=== PATIENT | male | born 1965 | race American Indian/Alaskan Native ===

== ENCOUNTER 2016-10-01 16:30 | Emergency (ER) | payer SELFPAY ==
[2016-10-01] MEDS ORDERED: DUONEB 0.5 MG-3 MG/3 ML SOLN IH ONE (18:59)
--- NOTE | 2016-10-01 19:08 | Emergency Department Report ---
Chief Complaint: Upper Respiratory Infection Stated Complaint: CHEST CONGESTION,MAK Time Seen by Provider: 10/01/16 18:51 - HPI History of Present Illness: 50-year-old male past medical history HIV, states his CD4 count is 1500 undetectable viral load, history of tuberculosis in 2011 and history of PCP pneumonia 2 in 2011 in 2012 presents with complaint of fevers chills cough productive approximately 5-6 days, also states that he has been having severe night sweats. Denies any hemoptysis no significant weight loss no significant arthralgias. Patient states he is traveling from [place] sitting family members. - ROS Review of Systems: history of HIV,TB and PCP pneumonia - Exam Vital Signs: Vital Signs 10/01/16 16:39 Temperature 98.2 F Pulse Rate 89 Respiratory 18 Rate Blood Pressure 158/94 O2 Sat by Pulse 95 Oximetry Physical Exam: Patient has bilateral rhonchi on auscultation of lung [place] MSE screening note: Focused history and physical exam performed. Due to findings the following was ordered: Screening Assessment/Plan/Differential Dx: Possible pneumonia versus influenza versus bronchitis versus viral syndrome, low risk for possibility of tuberculosis 1- This initial assessment/diagnostic orders/clinical plan/ treatment(s) is/are subject to change based on pt's health status, clinical progression and re- assessment by fellow clinical providers in the ED. Further treatment and workup at subsequent clinical provers discretion. Patient/guardians urged not to elope from ED as their condition may be serious if not clinically assessed and managed. 2-chest x-ray, BMP, LDH, lactic acid, CBC, influenza swab 3-I immediately informed charge nurse of scenario, respiratory/droplet isolation room opened in main ED patient transferred to isolation room for further assessment and management 4-given patient's clinical symptoms and history of tuberculosis and recurrent PCP pneumonia these should be considered in his differential diagnoses ED Disposition for MSE Condition: Stable
--- NOTE | 2016-10-01 19:09 | Emergency Department Report ---
- General Chief Complaint: Upper Respiratory Infection Stated Complaint: CHEST CONGESTION,MAK Time Seen by Provider: 10/01/16 18:51 Source: patient Mode of arrival: Ambulatory Limitations: No Limitations - History of Present Illness Initial Comments: 50-year-old male past medical history HIV, states his CD4 count is 1500 undetectable viral load, history of tuberculosis in 2011 and history of PCP pneumonia 2 in 2011 in 2013 presents with complaint of fevers, chills, cough productive approximately 6 days, also states that he has been having severe night sweats. Denies any hemoptysis no significant weight loss no significant arthralgias. Patient is immunocompetent and he is visiting from [place]. He is on antiviral therapy and infectious disease doctors in [place]. Patient said that he will be returning to [place] on Monday. He did not take any fever flake miller wheat and oats today but he did due to Mucinex and NyQuil yesterday. Denies any nausea vomiting. She reports having chest congestion. Pain scale is 0 out of 10. Patient denies any shortness of breath. MD Complaint: fever, cough, nasal congestion Onset/Timin -: days(s) Severity scale (0 -10): 0 Improves With: OTC cold medicine Worsens With: nothing Context: other (unknown) Associated Symptoms: fever, chills, diaphoresis, rhinorrhea, nasal congestion, cough. denies: myalgias, headache, sore throat, stiff neck, chest pain, shortness of breath, abdominal pain, nausea, vomiting, diarrhea, dysuria, rash, confusion, right sweats, weight loss, epistaxis, hoarseness, ear pain Treatments Prior to Arrival: "cold medicine" - Related Data Previous Rx's Medication Instructions Recorded Last Taken Type ALBUTEROL Inhaler [ProAir HFA 2 puff IH QID PRN #1 inhalation 10/01/16 Unknown Rx Inhaler] Fluticasone [Flonase] 1 spray NS QDAY #1 bottle 10/01/16 Unknown Rx Sulfamethoxazole/Trimethoprim 1 each PO BID #20 tablet 10/01/16 Unknown Rx [Bactrim DS TAB] guaiFENesin/CODEINE [Robitussin AC] 10 ml PO TID PRN #210 ml NS 10/01/16 Unknown Rx Allergies Allergy/AdvReac Type Severity Reaction Status Date / Time No Known Allergies Allergy Verified 10/01/16 16:43 ED Review of Systems ROS: Stated complaint: CHEST CONGESTION,MAK Other details as noted in HPI Comment: All other systems reviewed and negative Constitutional: chills, diaphoresis, fever Eyes: denies: eye pain, eye discharge ENT: congestion. denies: ear pain, throat pain Respiratory: cough, other (no hemoptysis). denies: orthopnea, shortness of breath, SOB with exertion, SOB at rest, stridor, wheezing Cardiovascular: denies: chest pain, palpitations, edema, syncope Gastrointestinal: denies: abdominal pain, nausea, vomiting, diarrhea Musculoskeletal: denies: back pain, arthralgia Skin: denies: rash Neurological: denies: headache ED Past Medical Hx - Past Medical History Previous Medical History?: Yes Additional medical history: HIV - Surgical History Past Surgical History?: No - Family History Family history: no significant - Social History Smoking Status: Never Smoker Substance Use Type: Alcohol - Medications Home Medications: Home Medications Medication Instructions Recorded Confirmed Last Taken Type ALBUTEROL Inhaler [ProAir HFA 2 puff IH QID PRN #1 inhalation 10/01/16 Unknown Rx Inhaler] Fluticasone [Flonase] 1 spray NS QDAY #1 bottle 10/01/16 Unknown Rx Sulfamethoxazole/Trimethoprim 1 each PO BID #20 tablet 10/01/16 Unknown Rx [Bactrim DS TAB] guaiFENesin/CODEINE [Robitussin AC] 10 ml PO TID PRN #210 ml NS 10/01/16 Unknown Rx ED Physical Exam - General Limitations: No Limitations General appearance: alert, in no apparent distress - Head Head exam: Present: atraumatic, normocephalic, normal inspection - Eye Eye exam: Present: normal appearance, PERRL, EOMI Pupils: Present: normal accommodation - ENT ENT exam: Present: normal orophraynx, mucous membranes moist, TM's normal bilaterally (bilateral TMs congested without erythema), normal external ear exam , other (nasal mucosa congested with erythema. Maxillary sinuses tender to palpate) - Neck Neck exam: Present: normal inspection, full ROM. Absent: tenderness, meningismus, lymphadenopathy - Respiratory Respiratory exam: Present: normal lung sounds bilaterally, wheezes, rhonchi, other (congested cough). Absent: respiratory distress, rales, stridor, chest wall tenderness, accessory muscle use, decreased breath sounds, prolonged expiratory - Expanded Respiratory Exam Expanded Location: Wheezes: Right, Left, Upper, Lower, Rhonchi: Right, Left, Upper, Lower - Cardiovascular Cardiovascular Exam: Present: regular rate, normal rhythm, normal heart sounds - GI/Abdominal GI/Abdominal exam: Present: soft, normal bowel sounds. Absent: distended, tenderness, guarding, rebound, rigid - Extremities Exam Extremities exam: Present: normal inspection, full ROM, normal capillary refill. Absent: tenderness, pedal edema, joint swelling, calf tenderness - Back Exam Back exam: Present: normal inspection, full ROM. Absent: tenderness, CVA tenderness (R), CVA tenderness (L), muscle spasm, paraspinal tenderness, vertebral tenderness - Neurological Exam Neurological exam: Present: alert, oriented X3, normal gait - Psychiatric Psychiatric exam: Present: normal affect, normal mood - Skin Skin exam: Present: warm, dry, intact, normal color. Absent: rash ED Course Vital Signs 10/01/16 10/01/16 10/01/16 16:39 19:25 19:52 Temperature 98.2 F Pulse Rate 89 Pulse Rate [ 23 L Anterior Bilateral Throughout] Pulse Rate [ Apical] Respiratory 18 22 Rate Respiratory 18 Rate [Anterior Bilateral Throughout] Blood Pressure 158/94 Blood Pressure [Left Arm] O2 Sat by Pulse 95 94 Oximetry 10/01/16 10/01/16 20:24 20:52 Temperature 100.3 F H Pulse Rate Pulse Rate [ 82 Anterior Bilateral Throughout] Pulse Rate [ 95 H Apical] Respiratory 18 Rate Respiratory 18 Rate [Anterior Bilateral Throughout] Blood Pressure Blood Pressure 142/90 [Left Arm] O2 Sat by Pulse 98 Oximetry Vital Signs 10/01/16 10/01/16 16:39 19:52 Temperature 98.2 F Pulse Rate 89 Pulse Rate [ 23 L Anterior Bilateral Throughout] Respiratory 18 Rate Respiratory 18 Rate [Anterior Bilateral Throughout] Blood Pressure 158/94 O2 Sat by Pulse 95 Oximetry Vital Signs 10/01/16 10/01/16 10/01/16 16:39 19:52 20:24 Temperature 98.2 F Pulse Rate 89 Pulse Rate [ 23 L 82 Anterior Bilateral Throughout] Respiratory 18 Rate Respiratory 18 18 Rate [Anterior Bilateral Throughout] Blood Pressure 158/94 O2 Sat by Pulse 95 Oximetry Vital Signs 10/01/16 10/01/16 10/01/16 16:39 19:25 19:52 Temperature 98.2 F Pulse Rate 89 Pulse Rate [ 23 L Anterior Bilateral Throughout] Pulse Rate [ Apical] Respiratory 18 22 Rate Respiratory 18 Rate [Anterior Bilateral Throughout] Blood Pressure 158/94 Blood Pressure [Left Arm] O2 Sat by Pulse 95 94 Oximetry 10/01/16 10/01/16 20:24 20:52 Temperature 100.3 F H Pulse Rate Pulse Rate [ 82 Anterior Bilateral Throughout] Pulse Rate [ 95 H Apical] Respiratory 18 Rate Respiratory 18 Rate [Anterior Bilateral Throughout] Blood Pressure Blood Pressure 142/90 [Left Arm] O2 Sat by Pulse 98 Oximetry Vital Signs 10/01/16 10/01/16 10/01/16 16:39 19:25 19:52 Temperature 98.2 F Pulse Rate 89 Pulse Rate [ 23 L Anterior Bilateral Throughout] Pulse Rate [ Apical] Respiratory 18 22 Rate Respiratory 18 Rate [Anterior Bilateral Throughout] Blood Pressure 158/94 Blood Pressure [Left Arm] O2 Sat by Pulse 95 94 Oximetry 10/01/16 10/01/16 10/01/16 20:24 20:52 23:03 Temperature 100.3 F H 100.1 F H Pulse Rate Pulse Rate [ 82 Anterior Bilateral Throughout] Pulse Rate [ 95 H 100 H Apical] Respiratory 18 18 Rate Respiratory 18 Rate [Anterior Bilateral Throughout] Blood Pressure Blood Pressure 142/90 142/90 [Left Arm] O2 Sat by Pulse 98 99 Oximetry - Reevaluation(s) Reevaluation #1: 10/01/16 19:34 Patient stable in room. awaiting x-ray and nebulizer treatment Reevaluation #2: 10/01/16 20:23 Patient stable no distress at present. Reevaluation #3: 10/01/16 22:37 Patient received then IV fluid and antipyretic. Reevaluation #4: 10/01/16 23:07 Patient will vital signs has normalized. He received 1 L of normal saline ED Medical Decision Making - Lab Data Result diagrams: 10/01/16 19:18 10/01/16 19:25 Lab Results 10/01/16 10/01/16 10/01/16 Range/Units 19:18 19:18 19:18 WBC 10.5 (4.5-11.0) K/mm3 RBC 5.31 H (3.65-5.03) M/mm3 Hgb 14.1 (11.8-15.2) gm/dl Hct 43.2 (35.5-45.6) % MCV 81 L (84-94) fl MCH 27 L (28-32) pg MCHC 33 (32-34) % RDW 15.0 (13.2-15.2) % Plt Count 382 (140-440) K/mm3 Lymph % (Auto) 38.6 H (13.4-35.0) % [place] % (Auto) 7.5 H (0.0-7.3) % Eos % (Auto) 0.1 (0.0-4.3) % Baso % (Auto) 0.5 (0.0-1.8) % Lymph # 4.1 (1.2-5.4) K/mm3 [place] # 0.8 (0.0-0.8) K/mm3 Eos # 0.0 (0.0-0.4) K/mm3 Baso # 0.1 (0.0-0.1) K/mm3 Seg Neutrophils % 53.3 (40.0-70.0) % Seg Neutrophils # 5.6 (1.8-7.7) K/mm3 VBG pH 7.378 (7.320-7.420) Sodium (137-145) mmol/L Potassium (3.6-5.0) mmol/L Chloride (98-107) mmol/L Carbon Dioxide (22-30) mmol/L Anion Gap mmol/L BUN (9-20) mg/dL Creatinine (0.8-1.5) mg/dL Estimated GFR ml/min BUN/Creatinine Ratio % Glucose (75-100) mg/dL Lactic Acid 1.6 (0.7-2.0) mmol/L Calcium (8.4-10.2) mg/dL Lactate Dehydrogenase (91-180) units/L 10/01/16 Range/Units 19:25 WBC (4.5-11.0) K/mm3 RBC (3.65-5.03) M/mm3 Hgb (11.8-15.2) gm/dl Hct (35.5-45.6) % MCV (84-94) fl MCH (28-32) pg MCHC (32-34) % RDW (13.2-15.2) % Plt Count (140-440) K/mm3 Lymph % (Auto) (13.4-35.0) % [place] % (Auto) (0.0-7.3) % Eos % (Auto) (0.0-4.3) % Baso % (Auto) (0.0-1.8) % Lymph # (1.2-5.4) K/mm3 [place] # (0.0-0.8) K/mm3 Eos # (0.0-0.4) K/mm3 Baso # (0.0-0.1) K/mm3 Seg Neutrophils % (40.0-70.0) % Seg Neutrophils # (1.8-7.7) K/mm3 VBG pH (7.320-7.420) Sodium 138 (137-145) mmol/L Potassium 4.3 (3.6-5.0) mmol/L Chloride 99.8 (98-107) mmol/L Carbon Dioxide 22 (22-30) mmol/L Anion Gap 21 mmol/L BUN 17 (9-20) mg/dL Creatinine 1.0 (0.8-1.5) mg/dL Estimated GFR > 60 ml/min BUN/Creatinine Ratio 17.00 % Glucose 112 H (75-100) mg/dL Lactic Acid (0.7-2.0) mmol/L Calcium 8.7 (8.4-10.2) mg/dL Lactate Dehydrogenase 223 H (91-180) units/L - Radiology Data Radiology results: report reviewed No acute cardiopulmonary processes - Medical Decision Making ED course: Patient here presented with nasal congestion and chest congestion. I discussed with patient his diagnosis and treatment plan. I discussed with him that his x-ray of chest was negative for any infection. Patient influenza test was negative, LDH was mildly elevated but this is seen in patient with HIV. Patient is immunocompetent and on antiviral medication. I also discussed with him the results of his other lab works. Lactic acid was within normal limits. Patient was given Motrin 600 mg in emergency room for elevated temp. Up and recheck, is temp was at 101 therefore he was given Tylenol 975 mg. Patient was also given 1 L of IV fluid. He was given all pewter all 5 mg with Atrovent 0.5 mg. Upon reevaluation, lungs sounds are clear and patient said he is feeling a lot better. I discussed with patient that I will put him on Bactrim DS due to his HIV status. I discussed with him that he needs to follow up with his infectious disease doctor in [place] when he gets back on Monday. Patient discharged home with prescription for Bactrim DS, Flonase, guaifenesin /codeine and albuterol. Prednisone was withheld due to immune status. I collaborated with Dr. Hill and patient presentation, findings and discharge plan. Critical care attestation.: If time is entered above; I have spent that time in minutes in the direct care of this critically ill patient, excluding procedure time. ED Disposition Clinical Impression: Cough Sinusitis, acute Qualifiers: Sinusitis location: unspecified location Recurrence: not specified as recurrent Qualified Code(s): J01.90 - Acute sinusitis, unspecified Bronchitis, acute Qualifiers: Bronchitis organism: unspecified organism Qualified Code(s): J20.9 - Acute bronchitis, unspecified Disposition: DISCHARGED TO HOME OR SELFCARE Is pt being admited?: No Does the pt Need Aspirin: No Condition: Stable Instructions: Acute Bronchitis (ED), Sinusitis (ED), Acute Cough (ED) Additional Instructions: . Follow up with her infectious disease doctor in 2-3 days. Take medication as prescribed. You may continue taking Mucinex Prescriptions: Fluticasone [Flonase] 1 spray NS QDAY #1 bottle RX: ALBUTEROL Inhaler [ProAir HFA Inhaler] 2 puff IH QID PRN #1 inhalation PRN Reason: Cough and Wheezing RX: guaiFENesin/CODEINE [Robitussin AC] 10 ml PO TID PRN #210 ml NS PRN Reason: Cough Referrals: Your, Infectious Disease Physician [Other] - 2-3 Days Forms: Accompanied Note, Work/School Release Form(ED)
[2016-10-01] MEDS ORDERED: PROVENTIL IH ONE (19:16)
[2016-10-01] MEDS ORDERED: ATROVENT IH ONE (19:16)
[2016-10-01 19:49] LABS: Basophils % (Auto) 0.5 % (0.0-1.8); Eosinophils % (Auto) 0.1 % (0.0-4.3); Hematocrit 43.2 % (35.5-45.6); Hemoglobin 14.1 gm/dl (11.8-15.2); Mean Corpuscular HGB Conc 33 % (32-34); Mean Corpuscular Hemoglobin 27 pg (28-32); Mean Corpuscular Volume 81 fl (84-94); Platelet Count 382 K/mm3 (140-440); Red Blood Count 5.31 M/mm3 (3.65-5.03); White Blood Count 10.5 K/mm3 (4.5-11.0)
--- NOTE | 2016-10-01 20:17 | XRay Report ---
FINAL REPORT PROCEDURE: XR CHEST 1V AP TECHNIQUE: Chest radiograph anteroposterior view. CPT 45516 HISTORY: fever, chills, cough COMPARISON: No prior studies are available for comparison. FINDINGS: Heart: Normal. Mediastinum/Vessels: Normal. Lungs/Pleural space: Normal. Bony thorax: No acute osseous abnormality. Life support devices: None. IMPRESSION: No acute cardiopulmonary abnormality.
[2016-10-01] MEDS ORDERED: MOTRIN PO ONE ×2 (20:44→22:10)
[2016-10-01 20:45] LABS: Anion Gap 21 mmol/L; Blood Urea Nitrogen 17 mg/dL (9-20); Calcium 8.7 mg/dL (8.4-10.2); Carbon Dioxide 22 mmol/L (22-30); Chloride 99.8 mmol/L (98-107); Glucose 112 mg/dL (75-100); Lactate Dehydrogenase 223 units/L (91-180); Potassium 4.3 mmol/L (3.6-5.0); Sodium 138 mmol/L (137-145)
[2016-10-01 20:54] VITALS: BP 142/90
[2016-10-01] MEDS ORDERED: TYLENOL ONE (21:51)
[2016-10-01] MEDS ORDERED: TYLENOL PO ONE (21:58)
[2016-10-01] MEDS ORDERED: NACL 0.9% 1000 ML 1,000 ML IV ONE (21:58)
== END 2016-10-01 23:23 | disposition home or self-care (01) ==
LOC: ED 16:30
DX: J01.90 Acute sinusitis, unspecified (principal); J20.9 Acute bronchitis, unspecified; R05 Cough
CPT/HCPCS: 36415; 71010; 80048; 82140; 82805; 83615; 85025; 87400; 94640; 96360; 99284; J7030